=== PATIENT | female | born 1995 | race Caucasian/White ===

== ENCOUNTER 2019-11-28 16:59 | Inpatient (IN) | payer MEDICAID, OTHER ==
[~2019-11-28] VITALS: Ht 160 cm; Wt 59.1 kg
[2019-11-28] MEDS ORDERED: ondansetron/PF 4mg/2ml inj IV ONE (17:30)
[2019-11-28] MEDS ORDERED: normal saline 1000ML IV soln IVB ONE (17:30)
[2019-11-28] MEDS ORDERED: morphine 4 MG/ML inj SYRINge IV PRN (17:30)
[2019-11-28] MEDS ORDERED: HYDROmorphone 1 mg/ml syringe IV ONE (17:35)
[2019-11-28 17:38] LABS: CLARITY,URINE CLEAR (Clear); COLOR,URINE YELLOW (Yellow); GLUCOSE, URINE 100 mg/dl (Neg); KETONES,URINE 15 mg/dl (Neg); LEUKOCYTE ESTERASE ,URINE NEGATIVE (Neg); NITRITES, URINE NEGATIVE (Neg); OCCULT BLOOD,URINE SMALL (Neg); PROTEIN,URINE NEGATIVE (Neg); UA COLLECTION TYPE CLN CATCH MIDSTREAM; UROBILINOGEN,URINE 0.2 E.U/dL (0.2-1.0)
[2019-11-28 17:43] LABS: BACTERIA,URINE FEW /HPF (Neg); MUCUS STRANDS NONE SEEN /LPF (Neg); RBC,URINE 0-2 /HPF (0-2); SQUAMOUS EPITHELIAL CELL,UR FEW /LPF (FEW); WBC,URINE 0-4 /HPF (0-4)
[2019-11-28 17:46] LABS: URINE HCG EQUIVOCAL (NEG)
[2019-11-28 17:48] LABS: BASOPHILS # (AUTO) 0.1 X10'3 (0-0.2); BASOPHILS % (AUTO) 0.4 % (0-1); EOSINOPHILS % (AUTO) 0 % (0-6); HEMATOCRIT 38.4 % (35.0-45.0); HEMOGLOBIN 12.5 g/dl (12.0-16.0); LYMPHOCYTES # (AUTO) 0.6 X10'3 (1.1-4.8); LYMPHOCYTES % (AUTO) 4.6 % (21-51); MEAN CORPUSCULAR HGB CONC 32.5 g/dL (33.0-36.5); MEAN CORPUSCULAR VOLUME 98.4 FL (78-98); MONOCYTES # (AUTO) 0.4 X10'3 (0-0.9); MONOCYTES % (AUTO) 2.8 % (2-12); NEUTROPHILS # (AUTO) 12.5 X10'3 (1.8-7.7); NEUTROPHILS % (AUTO) 92.2 % (42-75); PLATELET COUNT 243 X10'3 (140-440); RED CELL DISTRIBUTION WIDTH 13.3 % (11.5-14.5); WHITE BLOOD COUNT 13.6 X10'3 (4.5-11.0)
[2019-11-28 17:59] LABS: ALANINE AMINOTRANSFERASE 14 U/L (12-78); ALBUMIN 4.2 G/DL (3.4-5.0); ALBUMIN/GLOBULIN RATIO 1.4 (1.1-1.5); ALKALINE PHOSPHATASE 46 IU/L (46-116); ANION GAP 8 (8-16); ASPARTATE AMINO TRANSFERASE 16 U/L (10-37); BILIRUBIN,TOTAL 0.2 MG/DL (0.1-1.0); BLOOD UREA NITROGEN 7 MG/DL (7-18); BUN/CREATININE RATIO 6.3 (6.6-38.0); CALCIUM 8.6 MG/DL (8.5-10.1); CHLORIDE 108 MMOL/L (99-107); CREATININE 1.11 MG/DL (0.40-0.90); ETHANOL < 0.010 GM/DL (0.0-0.010); GLUCOSE 142 MG/DL (70-104); LIPASE 61 U/L (73-393); POTASSIUM 3.6 MMOL/L (3.5-5.1); SODIUM 140 MMOL/L (135-145); TOTAL CARBON DIOXIDE 24.1 MMOL/L (24-32); TOTAL PROTEIN 7.1 G/DL (6.4-8.2); eGFR 61 ML/MIN
[2019-11-28] MEDS ORDERED: tamsulosin 0.4mg capsule PO SCH (18:05)
[2019-11-28] MEDS ORDERED: tamsulosin 0.4mg capsule PO ONE (18:05)
[2019-11-28] MEDS ORDERED: magnesium hydroxide 30ml (MOM) UD suspension PO PRN (19:40)
[2019-11-28] MEDS ORDERED: acetaminophen 325mg tablet PO PRN (19:40)
[2019-11-28] MEDS ORDERED: morphine 2 MG/ML inj. syringe IV PRN (19:40)
[2019-11-28] MEDS: ondansetron/PF 4mg/2ml inj IV PRN (20:15)
[2019-11-28] MEDS ORDERED: NO HOME MEDS (20:16)
[2019-11-28 20:24] LABS: URINE AMPHETAMINE SCREEN NEGATIVE (Neg); URINE BARBITUATE SCREEN NEGATIVE (Neg); URINE BENZODIAZEPINES SCREEN NEGATIVE (Neg); URINE CANNABINOID SCREEN POSITIVE (Neg); URINE COCAINE SCREEN NEGATIVE (Neg); URINE METHADONE SCREEN NEGATIVE (Neg); URINE OPIATE SCREEN POSITIVE (Neg); URINE PHENCYCLIDINE SCREEN NEGATIVE (Neg)
[2019-11-28 20:40] VITALS: BP 144/83
--- NOTE | 2019-11-28 20:40 | NUR ---
PATIENT ADMITTED TO ROOM 344A FROM ER FOR KIDNEY STONES. PLACED COMFORTABLE IN BED. VITAL SIGNS TAKEN AND RECORDED.
[2019-11-28] MEDS: docusate sod 100mg capsule PO SCH (21:05)
[2019-11-28] MEDS: normal saline 1000ml 1,000 ML IV SCH (21:05)
[2019-11-28] MEDS ORDERED: HYDROmorphone 1 mg/ml syringe IV PRN (21:55)
[2019-11-28] MEDS: HYDROmorphone 1 mg/ml syringe IV PRN (22:13)
[2019-11-28] MEDS: CefTRIAXone/D5W-Rocephin 1gm 50 ML IV SCH (22:41)
[2019-11-29] VITALS (17 sets, daily range): BP systolic 90–141; BP diastolic 46–98
[2019-11-29] MEDS: HYDROmorphone 1 mg/ml syringe IV PRN ×5 (04:05→23:14)
[2019-11-29 05:04] LABS: BASOPHILS % (AUTO) 0.2 % (0-1); EOSINOPHILS % (AUTO) 0.1 % (0-6); HEMATOCRIT 38.6 % (35.0-45.0); HEMOGLOBIN 12.7 g/dl (12.0-16.0); LYMPHOCYTES # (AUTO) 1.7 X10'3 (1.1-4.8); LYMPHOCYTES % (AUTO) 11.9 % (21-51); MEAN CORPUSCULAR HGB CONC 32.9 g/dL (33.0-36.5); MEAN CORPUSCULAR VOLUME 97.4 FL (78-98); MONOCYTES # (AUTO) 0.9 X10'3 (0-0.9); MONOCYTES % (AUTO) 6.2 % (2-12); NEUTROPHILS # (AUTO) 11.8 X10'3 (1.8-7.7); NEUTROPHILS % (AUTO) 81.6 % (42-75); PLATELET COUNT 251 X10'3 (140-440); RED BLOOD COUNT 3.96 X10'6 (4.20-5.60); RED CELL DISTRIBUTION WIDTH 12.9 % (11.5-14.5); WHITE BLOOD COUNT 14.4 X10'3 (4.5-11.0)
[2019-11-29 05:20] LABS: ANION GAP 12 (8-16); BLOOD UREA NITROGEN 7 MG/DL (7-18); BUN/CREATININE RATIO 5.9 (6.6-38.0); CALCIUM 8.6 MG/DL (8.5-10.1); CHLORIDE 105 MMOL/L (99-107); CREATININE 1.19 MG/DL (0.40-0.90); GLUCOSE 102 MG/DL (70-104); POTASSIUM 3.7 MMOL/L (3.5-5.1); SODIUM 140 MMOL/L (135-145); TOTAL CARBON DIOXIDE 23.5 MMOL/L (24-32); eGFR 56 ML/MIN
--- NOTE | 2019-11-29 06:45 | NUR ---
Problems reprioritized. Patient report given, questions answered & plan of care reviewed with YVONNE DAVIDSON.
--- NOTE | 2019-11-29 06:57 | NUR ---
Problems reprioritized. Patient report given, questions answered & plan of care reviewed with Cathy Morgan RN. Addendum: 11/29/19 at 0658 by Deysi Grace RN Patient in room [facility]. I have received report from Cathy Morgan RN and had the opportunity to ask questions and assume patient care.
--- NOTE | 2019-11-29 07:30 | NUR ---
Patient in room [facility]. I have received report from LETY Jo and had the opportunity to ask questions and assume patient care.
--- NOTE | 2019-11-29 07:30 | NUR ---
Problems reprioritized. Patient report given, questions answered & plan of care reviewed with LETY Gerardo.
[2019-11-29] MEDS: docusate sod 100mg capsule PO SCH ×2 (08:00→20:28)
--- NOTE | 2019-11-29 09:08 | NUR ---
Problems reprioritized. Patient report given, questions answered & plan of care reviewed with LETY Bond.
[2019-11-29] MEDS: normal saline 1000ml 1,000 ML IV SCH ×2 (10:05→15:00)
[2019-11-29] MEDS: ondansetron/PF 4mg/2ml inj IV PRN (10:10)
[2019-11-29] MEDS: CefTRIAXone/D5W-Rocephin 1gm 50 ML IV SCH (10:13)
--- NOTE | 2019-11-29 10:14 | NUR ---
Patient in room [facility]. I have received report from LETY Gerardo and had the opportunity to ask questions and assume patient care.
[2019-11-29 11:19] LABS: BETA HCG,QUANTITATIVE 70 mIU/ml
[2019-11-29] MEDS ORDERED: fentaNYL/PF 50MCG/1 ML 2ML syringe ONE (11:47)
[2019-11-29] MEDS ORDERED: midazolam 2 mg/2 ml injection ONE (11:47)
--- NOTE | 2019-11-29 11:49 | NUR ---
Spoke w/ OR digital cartographer "Isabel" to notify Dr Kerr of Beta HCG test results = 70 (1-2 weeks). Isabel stated MD is aware and the lab result is "left over" from recent AB. Pt confirmed AB 1mo ago. Primary RN, Ronda, aware.
[2019-11-29] MEDS ORDERED: iohexol 300 MG/1 ML 50ml polymer ONE (11:54)
[2019-11-29] MEDS ORDERED: sevoflurane 250ml liquid IH ONE (12:16)
[2019-11-29] MEDS ORDERED: ondansetron/PF 4mg/2ml inj ONE (12:40)
[2019-11-29] MEDS ORDERED: sugammadex 200mg/2ml injection IV ONE (12:40)
--- NOTE | 2019-11-29 12:57 | NUR ---
Received from OR via BED, accompanied by Anesthesiologist DR BOOGIE and report given by Anesthesiolgist. AWAKE, VSS. NO COMPLAINTS. IV PATENT LEFT FA #20 WITH LR @ 100MLS/HR. ABD SOFT/NONDISTENDED. SCD'S APPLIED BILAT.
[2019-11-29] MEDS ORDERED: ringers solution, lacted 1,000 ML IV SCH (13:11)
[2019-11-29] MEDS ORDERED: glycopyrrolate 0.2mg/ml inj ONE (13:13)
[2019-11-29] MEDS ORDERED: neostigmine methylsulfate 1 MG/ML 10ml vial ONE (13:13)
[2019-11-29] MEDS ORDERED: dexamethasone sod phosphate 4mg/ml inj. ONE (13:13)
[2019-11-29] MEDS ORDERED: propofol inj 20 ML IV ONE (13:14)
[2019-11-29] MEDS ORDERED: LIDOcaine 2% (20mg/ml) 5ml vial ONE (13:14)
[2019-11-29] MEDS ORDERED: rocuronium 10mg/ml inj IV ONE (13:14)
[2019-11-29] MEDS ORDERED: ondansetron/PF 4mg/2ml inj IV PRN (13:15)
[2019-11-29] MEDS ORDERED: meperidine/PF 25mg/ml syringe IV PRN ×3 (13:15)
[2019-11-29] MEDS ORDERED: morphine 2 MG/ML inj. syringe IV PRN (13:15)
[2019-11-29] MEDS ORDERED: proCHLORperazine 10 MG/2 ml inj IV PRN (13:15)
[2019-11-29] MEDS ORDERED: morphine 4 MG/ML inj SYRINge IV PRN (13:15)
--- NOTE | 2019-11-29 13:47 | NUR ---
VSS. PT SLEEPING, STATES 3/10 PAIN WHEN AWAKENED AND ASKED. ABD SOFT AND NONDISTENDED. REPORT GIVEN TO BISI DAVIDSON WITH ALL QUESTIONS ANSWERED. PT TRANSPORTED VIA BED BY RN TO [facility] WITH RESOURCE RN TO RECEIVE PT. PT'S CELL PHONE IN HER HAND AT TIME OF TRANSPORT.
--- NOTE | 2019-11-29 18:23 | NUR ---
Problems reprioritized. Patient report given, questions answered & plan of care reviewed with LETY BERGER.
--- NOTE | 2019-11-29 18:25 | NUR ---
Patient in room [facility]. I have received report from LETY MATHEWS and had the opportunity to ask questions and assume patient care. Addendum: 11/29/19 at 1825 by Gia Osorio RN Amended: Links added.
[2019-11-29] MEDS: ciprofloxacin 250mg tablet PO SCH (20:28)
[2019-11-29] MEDS ORDERED: tamsulosin 0.4mg capsule PO SCH (21:00)
[2019-11-30] VITALS: BP 97/54
[2019-11-30] MEDS: normal saline 1000ml 1,000 ML IV SCH ×2 (01:59→11:37)
[2019-11-30] MEDS: HYDROmorphone 1 mg/ml syringe IV PRN ×3 (05:08→13:46)
[2019-11-30 05:26] LABS: ALBUMIN 3.5 G/DL (3.4-5.0); ANION GAP 4 (8-16); BLOOD UREA NITROGEN 5 MG/DL (7-18); BUN/CREATININE RATIO 5.8 (6.6-38.0); CALCIUM 8.4 MG/DL (8.5-10.1); CHLORIDE 108 MMOL/L (99-107); CREATININE 0.86 MG/DL (0.40-0.90); GLUCOSE 87 MG/DL (70-104); POTASSIUM 3.8 MMOL/L (3.5-5.1); SODIUM 141 MMOL/L (135-145); TOTAL CARBON DIOXIDE 28.6 MMOL/L (24-32); eGFR 82 ML/MIN
[2019-11-30 05:27] LABS: BASOPHILS % (AUTO) 0.2 % (0-1); EOSINOPHILS % (AUTO) 0.1 % (0-6); HEMATOCRIT 34.8 % (35.0-45.0); HEMOGLOBIN 11.7 g/dl (12.0-16.0); LYMPHOCYTES # (AUTO) 1.8 X10'3 (1.1-4.8); LYMPHOCYTES % (AUTO) 24.2 % (21-51); MEAN CORPUSCULAR HEMOGLOBIN 32.9 PG (27.0-31.0); MEAN CORPUSCULAR HGB CONC 33.6 g/dL (33.0-36.5); MEAN CORPUSCULAR VOLUME 98.1 FL (78-98); MONOCYTES # (AUTO) 0.6 X10'3 (0-0.9); MONOCYTES % (AUTO) 8.3 % (2-12); NEUTROPHILS # (AUTO) 5.1 X10'3 (1.8-7.7); NEUTROPHILS % (AUTO) 67.2 % (42-75); PLATELET COUNT 198 X10'3 (140-440); RED BLOOD COUNT 3.55 X10'6 (4.20-5.60); RED CELL DISTRIBUTION WIDTH 13.2 % (11.5-14.5); WHITE BLOOD COUNT 7.5 X10'3 (4.5-11.0)
--- NOTE | 2019-11-30 06:21 | NUR ---
Problems reprioritized. Patient report given, questions answered & plan of care reviewed with LETY Lara.
[2019-11-30] MEDS: docusate sod 100mg capsule PO SCH (07:13)
[2019-11-30] MEDS: ciprofloxacin 250mg tablet PO SCH (07:13)
[2019-11-30] MEDS: CefTRIAXone/D5W-Rocephin 1gm 50 ML IV SCH (07:13)
[2019-11-30 08:00] VITALS: BP 116/64
[2019-11-30] MEDS ORDERED: CIPR250T4 PO (10:19)
[2019-11-30] MEDS ORDERED: HYDR-4383 PO (11:09)
[2019-11-30] MEDS ORDERED: ONDA4TAB6 PO (11:09)
[2019-11-30 12:06] VITALS: BP 100/53
--- NOTE | 2019-11-30 14:27 | NUR ---
Patient discharged home with boyfriend neeta, stable and appropriate. All belongings taken from room. IV removed. Discharge instructions given and reviewed with patient, all questions answered. New prescription e-scripted to [facility] in [place], narcotic prescription given to patient.
--- NOTE | 2019-12-01 12:41 | NUR ---
patient called with a complaint of pain in her urethra. attempted to call patient back multiple times at [phone] and was unsuccessful. The voicemail to this phone number was full as well, so i was unable to leave any message.
== END 2019-11-30 14:30 | disposition home or self-care (01) | DRG 446 ==
LOC: ER 17:00 → ED HOLD 19:37 → SUR 3N 20:33 → PACU 11-29 13:04 → SUR 3N 11-29 18:03
PROVIDERS: ADMIT Internal Medicine; ATTEND Internal Medicine
PROC: 0TC78ZZ Extirpation of Matter from Left Ureter, Via Natural or Artificial Opening Endoscopic (ICD-10-PCS; principal; 2019-11-28)
PROC: 0T777DZ Dilation of Left Ureter with Intraluminal Device, Via Natural or Artificial Opening (ICD-10-PCS; 2019-11-28)
DX: N20.2 Calculus of kidney with calculus of ureter (principal); N17.9 Acute kidney failure, unspecified; N39.0 Urinary tract infection, site not specified; Z87.440 Personal history of urinary (tract) infections; Z88.8 Allergy status to other drugs, medicaments and biological substances
CPT/HCPCS: 36415; 74420; 76000; 80048; 80053; 80305; 80320; 81001; 81025; 83690; 84702; 85025; 87081; 96374; 96375; 99285; A4618; A7000; C1758; C1769; C2617; C9399; G0378; J0696; J1100; J1170; J2001; J2175; J2250; J2270; J2405; J2704; J2710; J3010; J3490; J7030; J7120; Q9967